=== PATIENT | female | born 1970 | race Caucasian/White ===

== ENCOUNTER 2020-04-28 16:29 | Emergency (ER) | payer SELFPAY ==
[~2020-04-28] VITALS: Ht 172.7 cm; Wt 75.0 kg
[2020-04-28 16:30] VITALS: BP 140/79
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
[2020-04-28] MEDS ORDERED: AMOXICILLIN/K CLAV 875/125MG TABLET. PO ONE (16:45)
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
[2020-04-28] MEDS ORDERED: TETANUS AND DIPHTHERIA TOX/PF 0.5 ML VIAL. VAX IM ONE (17:30)
[2020-04-28] MEDS ORDERED: AMOX1TAB61 PO (17:37)
[2020-04-28] MEDS ORDERED: IBUPROFEN 600 MG TABLET. PO ONE (17:45)
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
== END 2020-04-28 18:20 | disposition home or self-care (01) ==
LOC: ER 16:29
DX: S00.83XA Contusion of other part of head, initial encounter (principal); S60.211A Contusion of right wrist, initial encounter; S60.022A Contusion of left index finger without damage to nail, initial encounter; S61.451A Open bite of right hand, initial encounter; Y04.1XXA Assault by human bite, initial encounter; Y93.89 Activity, other specified; Y92.89 Other specified places as the place of occurrence of the external cause; Y99.8 Other external cause status
CPT/HCPCS: 70450; 73110; 73130; 90471; 90714; 99284-25